=== PATIENT | female | born 1990 | race Caucasian/White ===

== ENCOUNTER 2017-05-29 09:07 | Day surgery (SDC) | payer OTHER ==
[~2017-05-29] VITALS: Ht 160 cm; Wt 54.4 kg
[2017-05-29 09:28] VITALS: BP 139/84
[2017-05-29 14:13] VITALS: BP 120/74
== END 2017-05-29 14:05 | disposition home or self-care (01) ==
LOC: DS 09:07 → OR 11:00 → DS 14:05
PROVIDERS: Surgery
PROC: 0FT44ZZ Resection of Gallbladder, Percutaneous Endoscopic Approach (ICD-10-PCS; principal; 2017-05-29 11:00)
DX: K81.1 Chronic cholecystitis (principal)
CPT/HCPCS: J0360; J0690; J1170; J2405; J2704; J2710; J3010; J3490; J7120